=== PATIENT | male | born 1985 ===

== ENCOUNTER 2020-12-28 18:58 | Emergency (ER) | payer OTHER ==
[2020-12-28] MEDS ORDERED: Bacitracin Oint 1 GM U/D Packet ONE (20:17)
[2020-12-28] MEDS ORDERED: Cephalexin 500 MG Cap PO ONE (20:18)
[2020-12-28] MEDS ORDERED: Bacitracin Oint 1 GM U/D Packet TOP ONE (20:18)
[2020-12-28] MEDS ORDERED: Diphtheria,Pertussis(Acell),Tetanus Vaccine 0.5 ML Syringe IM ONE (20:18)
--- NOTE | 2020-12-28 20:24 | EDM.PDOC ---
ED HPI GENERAL MEDICAL PROBLEM - General Chief Complaint: Laceration Stated Complaint: CUT ON LEFT HAND Time Seen by Provider: 12/28/20 19:44 - History of Present Illness INITIAL COMMENTS - FREE TEXT/NARRATIVE: HISTORY AND PHYSICAL: History of present illness: This is a 35-year-old gentleman who presents ER today with a laceration to his nondominant left hand between the webspace of his index and middle finger that occurred when he was jumping over fence. Patient's tetanus status not up-to-date. Patient denies any sensory or motor deficit prior to arrival. Review of systems: As per history of present illness and below otherwise all systems reviewed and negative. Past medical history: As per history of present illness and as reviewed below otherwise noncontributory. Surgical history: As per history of present illness and as reviewed below otherwise noncontributory. Social history: No reported history of drug abuse. Family history: As per history of present illness and as reviewed below otherwise noncont ributory. Physical exam: This patient was seen and evaluated during the 2019 SARS-CoV-2 novel coronavirus pandemic period. Community viral transmission is ongoing at time of this encounter and the emergency department is operating under pandemic response procedures. Constitutional: Patient is oriented to person, place, and time. Appears well- developed and well-nourished. No distress. HEENT: Moist mucous membranes Head: Normocephalic and atraumatic Eyes: Right eye exhibits no discharge. Left eye exhibits no discharge. No scleral icterus Neck: Normal range of motion. No tracheal deviation present. Cardiovascular: Normal rate and regular rhythm. Pulmonary: Effort normal, no respiratory distress. Abdominal: No distention Musculoskeletal: Normal range of motion Neurologic: Alert and oriented to person, place and time. Skin: Hamm[place], warm and dry. Psychiatric: Normal mood and affect. Behavior is normal. Judgment and thought content normal. Nursing note and vital signs have been reviewed Patient's ER physical exam is significant for a 5 cm laceration initiating at the webspace between the index and middle finger extending the palmar aspect of the hand. Patient is neurovascular intact. Wound was explored after anesthesia. No tendon or ligament involvement identified. Patient has good sensation intact. Patient has full range of motion with isolated flexion ex tension abduction and abduction of his extremities. Diagnostics: Therapeutics: Keflex 500 mg p.o. twice daily x5 days. Tdap 0.5 IM Assessment and plan: 35-year-old gentleman who is right-hand dominant presents ER today secondary to laceration to his left index finger that occurred while jumping over a fence. Patient is neurovascularly intact. Wound was sutured in the ED, please see sutu re note. Patient will be started on Keflex 500 mg p.o. twice daily x5 days. Patient need wound check in 2 days and suture removal in 7 to 10 days. Wound will have bacitracin applied to it as well as jose tape to assist with healing. Definitive disposition and diagnosis as appropriate pending reevaluation and review of above. left hand Pain Score (Numeric/FACES): 5 - Related Data Allergies Allergy/AdvReac Type Severity Reaction Status Date / Time Sulfa (Sulfonamide Allergy Rash Verified 12/28/20 19:35 Antibiotics) Home Meds: Home Meds ClonazePAM [KlonoPIN] 0.5 mg PO DAILY 12/28/20 [History] cephALEXin [Keflex] 500 mg PO Q8H #15 cap 12/28/20 [Rx] Past Medical History Gastrointestinal History: Reports: Colon Polyp - Infectious Disease History Infectious Disease History: Reports: Chicken Pox - Past Surgical History HEENT Surgical History: Reports: Oral Surgery GI Surgical History: Reports: Appendectomy, Colonoscopy, EGD, Other (See Below) Other GI Surgeries/Procedures: umbilical hernia repair Social & Family History - Family History Family Medical History: No Pertinent Family History - Tobacco Use Tobacco Use Status *Q: Never Tobacco User - Caffeine Use Caffeine Use: Reports: Coffee, Soda - Recreational Drug Use Recreational Drug Use: No ED ROS GENERAL - Review of Systems Review Of Systems: See Below ED EXAM, SKIN/RASH Exam: See Below ED SKIN PROCEDURES - Laceration/Wound Repair Left Hand Appearance: Subcutaneous, Irregular, Clean Distal NVT: Neuro & Vascular Intact, No Tendon Injury Anesthetic Type: Local Local Anesthesia - Lidocaine (Xylocaine): 1% Plain Local Anesthetic Volume: 5cc Skin Prep: Saline, Other Exploration/Debridement/Repair: Wound Explored, In a Bloodless Field, Explored to Base Closed with: Sutures Lac/Wound length In cm: 5 Suture Size: 4-0 # of Sutures: 9 Suture Type: Nylon Sterile Dressing Applied: Nurse Tetanus Status Addressed: Yes Course - Vital Signs Last Recorded V/S: Last Vital Signs Temp 97.8 F 12/28/20 19:36 Pulse 111 H 12/28/20 19:36 Resp 18 12/28/20 19:36 BP 139/99 H 12/28/20 19:36 Pulse Ox 96 12/28/20 19:36 - Orders/Labs/Meds Meds: Medications Discontinued Medications Generic Name Dose Route Start Last Admin Trade Name Miller PRN Reason Stop Dose Admin Lidocaine HCl 10 ml 12/28/20 19:48 12/28/20 20:00 Lidocaine 1% 5 Ml Sdv INJECT 12/28/20 19:49 10 ml ONETIME ONE Administration Lidocaine HCl Confirm 12/28/20 19:48 12/28/20 20:00 Lidocaine 1% 5 Ml Sdv Administered 12/28/20 19:49 Not Given Dose 10 ml .ROUTE .STK-MED ONE Departure - Departure Time of Disposition: 20:26 Disposition: Home, Self-Care 01 Condition: Good Clinical Impression: Hand laceration Laceration of hand, left Qualifiers: Encounter type: initial encounter Foreign body presence: without foreign body Qualified Code(s): S61.412A - Laceration without foreign body of left hand, initial encounter - Discharge Information Instructions: Laceration Care, Adult Referrals: Armaan Clark MD [Primary Care Provider] - Additional Instructions: Your seen and evaluated in the ER today secondary to a laceration to your left hand. 9 sutures have been placed. You will need to have your sutures removed in 7 to 10 days. Please keep the fingers jose taped together for about 5 days. You will be given a prescription for Keflex 500 mg take 3 times a day for the next 5 days. You may take ibuprofen and Tylenol as needed for pain. The following information is given to patients seen in the emergency department who are being discharged to home. This information is to outline your options for follow-up care. We provide all patients seen in our emergency department with a follow-up referral. The need for follow-up, as well as the timing and circumstances, are variable depending upon the specifics of your emergency department visit. If you don't have a primary care physician on staff, we will provide you with a referral. We always advise you to contact your personal physician following an emergency department visit to inform them of the circumstance of the visit and for follow-up with them and/or the need for any referrals to a consulting specialist. The emergency department will also refer you to a specialist when appropriate. This referral assures that you have the opportunity for follow-up care with a specialist. All of these measure are taken in an effort to provide you with optimal care, which includes your follow-up. Under all circumstances we always encourage you to contact your private physician who remains a resource for coordinating your care. When calling for follow-up care, please make the office aware that this follow-up is from your recent emergency room visit. If for any reason you are refused follow-up, please contact the [facility] Emergency Department at and asked to speak to the emergency department charge nurse. [facility] [address] [place] [id number] [facility] [address] [place] [id number] Sepsis Event Note (ED) - Evaluation Sepsis Screening Result: No Definite Risk - Focused Exam Vital Signs: Vital Signs Temp Pulse Resp BP Pulse Ox 12/28/20 19:36 97.8 F 111 H 18 139/99 H 96
[2020-12-28 20:39] VITALS: BP 140/89; PULSE 92
== END 2020-12-28 20:39 | disposition home or self-care (01) ==
LOC: MW.ED 18:58
DX: S61.412A Laceration without foreign body of left hand, initial encounter (principal); Z23 Encounter for immunization; W26.8XXA Contact with other sharp object(s), not elsewhere classified, initial encounter
CPT/HCPCS: 12002; 90471; 90715; 99282; 99282-25; A9270-GY